=== PATIENT | female | born 1965 | race Caucasian/White ===

== ENCOUNTER 2018-05-23 01:03 | Inpatient (IN) | payer MEDICAID ==
[2018-05-23] VITALS (7 sets, daily range): BP systolic 109–135; BP diastolic 43–84; Ht 160 cm; Wt 73.9 kg
[~2018-05-23] VITALS: Ht 160 cm; Wt 73.9 kg
[2018-05-23 03:42] LABS: BASOPHIL % 0.9 % (0-2); PLATELET COUNT 342 x10^3mcL (130-400)
[2018-05-23 03:43] LABS: RED CELL DISTRIBUTION WIDTH 15.5 % (11.5-14.5)
[2018-05-23 04:02] LABS: CALCIUM 8.9 mg/dL (8.5-10.1); CARBON DIOXIDE 23.8 mmol/L (21-32); CHLORIDE SERUM 103 mmol/L (98-107); CREATININE SERUM 0.6 mg/dL (0.6-1.0); GFR1 > 60 mL/min; GLUCOSE SERUM 250 mg/dL (74-106); POTASSIUM SERUM 3.4 mmol/L (3.5-5.1); SODIUM SERUM 138 mmol/L (136-145)
[2018-05-23 04:04] LABS: ALKALINE PHOSPHATASE 101 U/L (46-116); ALT/SGPT 7 U/L (14-59); AST/SGOT 8 U/L (15-37); BILIRUBIN TOTAL 0.24 mg/dL (0.20-1.00); TOTAL PROTEIN, SERUM 7.3 g/dL (6.4-8.2)
[2018-05-23] MEDS ORDERED: NATURE'S BLEND F1 MG PO (06:29)
[2018-05-23] MEDS ORDERED: JANUVIA100 M1 PO (06:29)
[2018-05-23] MEDS ORDERED: CYMBALTA30 M1 PO (06:30)
[2018-05-23] MEDS ORDERED: DILANTIN100 MG PO (06:31)
[2018-05-23] MEDS ORDERED: ACT15 PO (06:31)
[2018-05-23] MEDS ORDERED: LYRICA50 M1 PO (06:32)
[2018-05-23] MEDS ORDERED: LORAZEPAM1 MG PO (06:34)
[2018-05-23] MEDS ORDERED: OXYCODONE HYDRO30 MG PO (06:35)
[2018-05-23] MEDS ORDERED: LOVASTATIN10 MG PO (06:37)
[2018-05-23 08:03] LABS: MAGNESIUM 1.8 mg/dL (1.8-2.4); PHOSPHOROUS 3.8 mg/dL (2.5-4.9)
[2018-05-23 08:05] LABS: FREE T4 1.26 ng/dL (0.76-1.46); FREE THYROXINE INDEX 2.9 ug/dL (1.4-4.5); T4(THYROXINE) 8.8 ug/dL (4.7-13.3)
[2018-05-23 08:15] LABS: CHOLESTEROL/HDL RATIO 6.3
[2018-05-23 09:01] LABS: T3 TOTAL 1.22 ng/mL
[2018-05-23] MEDS ORDERED: SOMA250 M1 PO (17:31)
[2018-05-23] MEDS ORDERED: XAN1 PO (17:31)
[2018-05-23] MEDS ORDERED: Januvia PO (17:42)
[2018-05-24 05:01] VITALS: BP 119/71
[2018-05-24 06:08] LABS: BASOPHIL % 0.8 % (0-2); PLATELET COUNT 351 x10^3mcL (130-400)
[2018-05-24 06:23] LABS: CALCIUM 8.7 mg/dL (8.5-10.1); CARBON DIOXIDE 22.8 mmol/L (21-32); CHLORIDE SERUM 106 mmol/L (98-107); CREATININE SERUM 0.5 mg/dL (0.6-1.0); GFR1 > 60 mL/min; GLUCOSE SERUM 165 mg/dL (74-106); MAGNESIUM 1.8 mg/dL (1.8-2.4); PHOSPHOROUS 3.8 mg/dL (2.5-4.9); POTASSIUM SERUM 3.5 mmol/L (3.5-5.1); RED CELL DISTRIBUTION WIDTH 15.4 % (11.5-14.5); SODIUM SERUM 141 mmol/L (136-145)
[2018-05-24 10:17] VITALS: BP 152/67
[2018-05-24 12:56] VITALS: BP 152/91
[2018-05-24 13:16] VITALS: BP 152/91
[2018-05-24] MEDS ORDERED: PREDNISONE20 MG PO (17:31)
[2018-05-24] MEDS ORDERED: SYMBICORT1 AE3 INH (17:33)
[2018-05-24] MEDS ORDERED: LEVAQUIN750 MG PO (17:33)
[2018-05-24 17:45] VITALS: BP 176/94
== END 2018-05-24 18:57 | disposition home or self-care (01) | DRG 139 ==
LOC: ED 01:03 → DU 06:29
PROVIDERS: Emergency Medicine; General Practice; Internal Medicine
DX: J18.9 Pneumonia, unspecified organism (principal); E44.0 Moderate protein-calorie malnutrition; E11.65 Type 2 diabetes mellitus with hyperglycemia; J45.901 Unspecified asthma with (acute) exacerbation; M06.9 Rheumatoid arthritis, unspecified; M79.7 Fibromyalgia; G89.4 Chronic pain syndrome; M81.0 Age-related osteoporosis without current pathological fracture; I10 Essential (primary) hypertension; E78.5 Hyperlipidemia, unspecified; F17.210 Nicotine dependence, cigarettes, uncomplicated; Z68.28 Body mass index [BMI] 28.0-28.9, adult; Z66 Do not resuscitate; Z79.891 Long term (current) use of opiate analgesic
CPT/HCPCS: 36600; 82962; 83880; 84439; 85378; 94150; J1100; J1956; J2920; J3010; J3475; J7030; J7620; J7626; Q0092; Q9967

== ENCOUNTER 2018-06-22 01:21 | Inpatient (IN) | payer MEDICAID ==
[~2018-06-22] VITALS: Ht 160 cm; Wt 72.2 kg
[~2018-06-22 01:21] MED LIST: ACT15 PO; CYMBALTA30 M1 PO; DILANTIN100 MG PO; JANUVIA100 M1 PO; Januvia PO; LEVAQUIN750 MG PO; LORAZEPAM1 MG PO; LOVASTATIN10 MG PO; LYRICA50 M1 PO; NATURE'S BLEND F1 MG PO; OXYCODONE HYDRO30 MG PO; PREDNISONE20 MG PO; SOMA250 M1 PO; SYMBICORT1 AE3 INH; XAN1 PO
[2018-06-22 01:28] VITALS: Ht 160 cm; Wt 72.2 kg
[2018-06-22 04:27] LABS: PLATELET COUNT 391 x10^3mcL (130-400); RED CELL DISTRIBUTION WIDTH 13.9 % (11.5-14.5)
[2018-06-22 04:31] LABS: BASOPHIL % 3.3 % (0-2)
[2018-06-22 04:35] LABS: CALCIUM 8.7 mg/dL (8.5-10.1); CARBON DIOXIDE 27.4 mmol/L (21-32); CHLORIDE SERUM 97 mmol/L (98-107); CREATININE SERUM 0.7 mg/dL (0.6-1.0); GFR1 > 60 mL/min; GLUCOSE SERUM 285 mg/dL (74-106); POTASSIUM SERUM 4.3 mmol/L (3.5-5.1); SODIUM SERUM 132 mmol/L (136-145)
[2018-06-22] MEDS ORDERED: LYRICA50 M1 PO (04:38)
[2018-06-22] MEDS ORDERED: CARISOPRODOL350 MG PO (04:38)
[2018-06-22] MEDS ORDERED: HYDROXYCHLOROQ200 MG PO (04:39)
[2018-06-22] MEDS ORDERED: JANUVIA100 M1 PO (04:39)
[2018-06-22] MEDS ORDERED: AZULFIDINE500 MG PO (04:39)
[2018-06-22] MEDS ORDERED: DULOXETINE30 MG PO (04:40)
[2018-06-22] MEDS ORDERED: AMITRIPTYLINE H50 MG PO (04:40)
[2018-06-22] MEDS ORDERED: PROPRANOLOL HCL10 MG PO (04:40)
[2018-06-22] MEDS ORDERED: ZESTRIL20 MG GT (04:41)
[2018-06-22] MEDS ORDERED: ARAVA20 MG PO (04:41)
[2018-06-22] MEDS ORDERED: QVAR REDIHALE10.6 G1 (04:42)
[2018-06-22] MEDS ORDERED: FLOVENT HF0.044 MG/1 (04:42)
[2018-06-22] MEDS ORDERED: BANOPHEN50 MG PO (04:42)
[2018-06-22 04:49] LABS: ALKALINE PHOSPHATASE 109 U/L (46-116); ALT/SGPT 8 U/L (14-59); AST/SGOT 29 U/L (15-37); BILIRUBIN TOTAL 0.5 mg/dL (0.20-1.00); FREE T4 1.35 ng/dL (0.76-1.46); LIPASE 122 IU/L (73-393); TOTAL PROTEIN, SERUM 7.3 g/dL (6.4-8.2)
[2018-06-22 04:54] LABS: ALBUMIN 2.9 g/dL (3.4-5.0)
[2018-06-22 08:20] LABS: microscopic required? NO
[2018-06-22 09:25] LABS: urine erythrocyte NEGATIVE (NEGATIVE)
[2018-06-22 10:49] VITALS: BP 106/59
[2018-06-22 12:06] LABS: T3 TOTAL 0.7 ng/mL
[2018-06-22 13:40] VITALS: BP 113/64
[2018-06-22 13:44] VITALS: BP 138/78
[2018-06-22 14:35] LABS: CHOLESTEROL/HDL RATIO 4.1
[2018-06-22 15:05] LABS: FREE T4 1.26 ng/dL (0.76-1.46); FREE THYROXINE INDEX 3.1 ug/dL (1.4-4.5); T4(THYROXINE) 9.9 ug/dL (4.7-13.3)
[2018-06-22 17:33] VITALS: BP 110/65
[2018-06-22 17:50] LABS: AMPHETAMINE QUAL UR NONE DETECTED (See below)
[2018-06-22 21:16] VITALS: BP 128/67
[2018-06-23 05:17] VITALS: BP 136/66
[2018-06-23 06:12] LABS: BASOPHIL % 0.3 % (0-2); PLATELET COUNT 373 x10^3mcL (130-400)
[2018-06-23 06:19] LABS: CALCIUM 8.7 mg/dL (8.5-10.1); CARBON DIOXIDE 23.9 mmol/L (21-32); CHLORIDE SERUM 101 mmol/L (98-107); CREATININE SERUM 0.6 mg/dL (0.6-1.0); GFR1 > 60 mL/min; GLUCOSE SERUM 182 mg/dL (74-106); PHOSPHOROUS 3.8 mg/dL (2.5-4.9); POTASSIUM SERUM 3.6 mmol/L (3.5-5.1); SODIUM SERUM 136 mmol/L (136-145)
[2018-06-23 06:44] LABS: RED CELL DISTRIBUTION WIDTH 14.6 % (11.5-14.5)
[2018-06-23 09:37] VITALS: BP 117/70
[2018-06-23 14:11] VITALS: BP 111/62
[2018-06-23 20:36] VITALS: BP 132/73
[2018-06-24 05:26] VITALS: BP 126/77
[2018-06-24 07:37] LABS: CALCIUM 8.7 mg/dL (8.5-10.1); CARBON DIOXIDE 21.4 mmol/L (21-32); CHLORIDE SERUM 100 mmol/L (98-107); CREATININE SERUM 0.6 mg/dL (0.6-1.0); GFR1 > 60 mL/min; GLUCOSE SERUM 154 mg/dL (74-106); MAGNESIUM 1.9 mg/dL (1.8-2.4); PHOSPHOROUS 3.6 mg/dL (2.5-4.9); POTASSIUM SERUM 3.6 mmol/L (3.5-5.1); SODIUM SERUM 137 mmol/L (136-145)
[2018-06-24 07:45] LABS: BASOPHIL % 0.6 % (0-2)
[2018-06-24 07:54] LABS: PLATELET COUNT 411 x10^3mcL (130-400); RED CELL DISTRIBUTION WIDTH 14.9 % (11.5-14.5)
[2018-06-24 08:42] VITALS: BP 131/78
[2018-06-24] MEDS ORDERED: LEVAQUIN750 MG PO (10:50)
[2018-06-24] MEDS ORDERED: VENTOLIN H0.09 MG/A1 INH (10:52)
[2018-06-24] MEDS ORDERED: MEDDP PO (11:15)
[2018-06-24 15:53] VITALS: BP 131/78
== END 2018-06-24 17:31 | disposition home or self-care (01) | DRG 139 ==
LOC: ED 01:21 → DU 04:40
PROVIDERS: Emergency Medicine; Family Medicine
DX: J18.9 Pneumonia, unspecified organism (principal); J96.01 Acute respiratory failure with hypoxia; E44.0 Moderate protein-calorie malnutrition; J91.8 Pleural effusion in other conditions classified elsewhere; J44.1 Chronic obstructive pulmonary disease with (acute) exacerbation; D68.69 Other thrombophilia; E11.65 Type 2 diabetes mellitus with hyperglycemia; G62.9 Polyneuropathy, unspecified; M06.9 Rheumatoid arthritis, unspecified; M79.7 Fibromyalgia; E78.00 Pure hypercholesterolemia, unspecified; F32.9 Major depressive disorder, single episode, unspecified; Z68.28 Body mass index [BMI] 28.0-28.9, adult; Z87.891 Personal history of nicotine dependence
CPT/HCPCS: 82962; 83880; 84439; 85378; 94150; J1956; J2270; J7050; J7620; Q0092; Q9967